=== PATIENT | female | born 1970 | race Caucasian/White ===

== ENCOUNTER 2017-07-06 11:05 | Emergency (ER) | payer OTHER ==
[~2017-07-06] VITALS: Ht 154.9 cm; Wt 80.0 kg
[2017-07-06 11:09] VITALS: BP 142/67; PULSE 63; RESP 16; TEMP 98.2; O2SAT 98
[2017-07-06 12:23] VITALS: O2SAT 96
--- NOTE | 2017-07-06 12:25 | PD ---
HPI Chief Complaint: Syncope/Near-Syncope Time Seen by Provider: 12:12 Travel History International Travel<30 days: No Contact w/Intl Traveler<30days: No Traveled to known affect area: No History of Present Illness HPI The patient was seen and examined in the presence of the nurse. This patient has been having 3 days of atypical symptoms. Severity of them is moderate. She has brief spells where she gets a room spinning dizziness. They last about 2 minutes and resolved spontaneously. No alleviating factors. No syncope. She has had a headache today. No thunderclap onset or severe headache though. She is not having speech slurring or confusion or fever or recent head injury. Denies some mild numbness in a strip that runs down the inside of each arm to about the level of the wrist but does not include the fingers. No leg symptoms. No neck pain. PFSH Past Medical History ?: Not Social History Alcohol Use: No Tobacco Use: No Substance Use: No Allergies-Medications (Allergen,Severity, Reaction): Coded Allergies: No Known Allergies (Verified Allergy, Unknown, 07/06/17) Reported Meds & Prescriptions Reported Meds & Active Scripts Active No Active Prescriptions or Reported Medications Review of Systems General / Constitutional: No: Fever Eyes: No: Visual changes HENT: Positive: Headaches, Vertigo Cardiovascular: No: Chest Pain or Discomfort Respiratory: No: Shortness of Breath Gastrointestinal: No: Abdominal Pain Genitourinary: No: Dysuria Musculoskeletal: No: Pain Skin: No Rash Neurologic: Positive: Dizziness, Sensory Disturbance, No: Weakness Psychiatric: No: Depression Endocrine: No: Polydipsia Hematologic/Lymphatic: No: Easy Bruising Physical Exam Narrative GENERAL: Well-nourished, well-developed patient in no apparent distress. SKIN: Focused skin assessment reveals no rash and nodules. Skin is Warm and dry. HEAD: Atraumatic. Normocephalic. EYES: Pupils equal and round. No scleral icterus. No injection or drainage. ENT: No nasal bleeding or discharge. Mucous membranes pink and moist. NECK: Trachea midline. No JVD. No midline tenderness. No meningeal signs CARDIOVASCULAR: Regular rate and rhythm. No murmur appreciated. RESPIRATORY: No accessory muscle use. Clear to auscultation. Breath sounds equal bilaterally. GASTROINTESTINAL: Abdomen soft, non-tender, nondistended. Hepatic and splenic margins not palpable. MUSCULOSKELETAL: No obvious deformities. No clubbing. No cyanosis. No edema. NEUROLOGICAL: Awake and alert. No obvious cranial nerve deficits. Motor grossly within normal limits. Normal speech. Sensory exam reveals some subjective diminishment only in a discrete strip down the inside of each arm. This includes sharp and light touch. There is not a complete sensory loss. PSYCHIATRIC: Appropriate mood and affect; insight and judgment normal. Data Data Last Documented VS Vital Signs Date Time Temp Pulse Resp B/P (MAP) Pulse Ox O2 Delivery O2 Flow Rate FiO2 07/06/17 12:23 96 07/06/17 11:09 98.2 63 16 142/67 (92) Orders Orders Electrocardiogram (07/06/17 12:17) Basic Metabolic Panel (Bmp) (07/06/17 12:17) Complete Blood Count With Diff (07/06/17 12:17) Ct Brain W/O Iv Contrast(Rout) (07/06/17 12:17) Ecg Monitoring (07/06/17 12:17) Iv Access Insert/Monitor (07/06/17 12:17) Oximetry (07/06/17 12:17) Sodium Chloride 0.9% Flush (Ns Flush) (07/06/17 12:30) Labs Laboratory Tests Test 07/06/17 12:20 White Blood Count 13.8 TH/MM3 Red Blood Count 4.92 MIL/MM3 Hemoglobin 14.6 GM/DL Hematocrit 43.3 % Mean Corpuscular Volume 88.1 FL Mean Corpuscular Hemoglobin 29.8 PG Mean Corpuscular Hemoglobin Concent 33.8 % Red Cell Distribution Width 12.6 % Platelet Count 195 TH/MM3 Mean Platelet Volume 8.9 FL Neutrophils (%) (Auto) 75.9 % Lymphocytes (%) (Auto) 17.3 % Monocytes (%) (Auto) 3.7 % Eosinophils (%) (Auto) 1.1 % Basophils (%) (Auto) 2.0 % Neutrophils # (Auto) 10.4 TH/MM3 Lymphocytes # (Auto) 2.4 TH/MM3 Monocytes # (Auto) 0.5 TH/MM3 Eosinophils # (Auto) 0.2 TH/MM3 Basophils # (Auto) 0.3 TH/MM3 CBC Comment DIFF FINAL Differential Comment Blood Urea Nitrogen 10 MG/DL Creatinine 0.69 MG/DL Random Glucose 108 MG/DL Calcium Level 9.1 MG/DL Sodium Level 138 MEQ/L Potassium Level 4.1 MEQ/L Chloride Level 107 MEQ/L Carbon Dioxide Level 21.4 MEQ/L Anion Gap 10 MEQ/L Estimat Glomerular Filtration Rate 92 ML/MIN MDM Medical Decision Making Medical Screen Exam Complete: Yes Emergency Medical Condition: Yes Medical Record Reviewed: Yes Differential Diagnosis Positional vertigo, labyrinthitis, TIA, CVA, radiculopathy Narrative Course I have reviewed the patient's electronic medical record. IV placed CBC is normal Metabolic profile is normal I reviewed her EKG which shows sinus rhythm without ectopy Extended cardiac monitoring shows sinus rhythm without ectopy Brain CT is normal No objective neurologic deficit on exam. She has some subjective peripheral neuropathy-type complaints. Not consistent with CVA. Symptoms are bilateral. Patient she had outpatient primary care or neurology follow-up Diagnosis Primary Impression: Vertigo Additional Impressions: Headache Qualified Codes: R51 - Headache Peripheral neuropathy Qualified Codes: G62.9 - Polyneuropathy, unspecified Additional Instructions: The patient was advised to follow up with their physician and return if they worsen. Med/Other Pt SpecificInfo: Other Scripts No Active Prescriptions or Reported Meds Disposition: DISCHARGE HOME Condition: Stable Otilio Woody MD Jul 06, 2017 12:25
[2017-07-06] MEDS ORDERED: SODIUM CHLORIDE 0.9% FLUSH 10 ML FLUSH IVF PRN (12:30)
[2017-07-06 12:31] LABS: AUTOMATED NEUTROPHIL # 10.4 TH/MM3 (1.8-7.7); BASOPHIL # 0.3 TH/MM3 (0-0.2); EOSINOPHIL # 0.2 TH/MM3 (0-0.4); EOSINOPHIL % 1.1 % (0.0-4.0); HEMATOCRIT 43.3 % (35.0-46.0); HEMO FLAGS DIFF FINAL; LYMPH % 17.3 % (9.0-44.0); LYMPHOCYTE # 2.4 TH/MM3 (1.0-4.8); MEAN CELL VOLUME 88.1 FL (80.0-100.0); MEAN CORPUSCULAR HEMOGLOBIN 29.8 PG (27.0-34.0); MEAN CORPUSCULAR HGB CONC 33.8 % (32.0-36.0); MONO % 3.7 % (0.0-8.0); NEUT % 75.9 % (16.0-70.0); PLATELET COUNT 195 TH/MM3 (150-450); RED BLOOD COUNT 4.92 MIL/MM3 (4.00-5.30); RED CELL DISTRIBUTION WIDTH 12.6 % (11.6-17.2); WHITE BLOOD COUNT 13.8 TH/MM3 (4.0-11.0)
[2017-07-06 12:38] LABS: POTASSIUM 4.1 MEQ/L (3.5-5.1)
[2017-07-06 12:41] LABS: BICARBONATE 21.4 MEQ/L (21.0-32.0)
--- NOTE | 2017-07-06 12:47 | RADRPT ---
EXAM DATE/TIME: 07/06/2017 12:35 [facility] COMPARISON: No previous studies available for comparison. INDICATIONS : Headache and visual disturbance. RADIATION DOSE: 61.51 CTDIvol (mGy) MEDICAL HISTORY : None SURGICAL HISTORY : None. ENCOUNTER: Initial ACUITY: 4 - 6 days PAIN SCALE: 4/10 LOCATION: cranial TECHNIQUE: Multiple contiguous axial images were obtained of the head. Using automated exposure control and adj ustment of the mA and/or kV according to patient size, radiation dose was kept as low as reasonably a chievable to obtain optimal diagnostic quality images. DICOM format image data is available electro nically for review and comparison. FINDINGS: CEREBRUM: The ventricles are normal for age. No evidence of midline shift, mass lesion, hemorrhage or acute in farction. No extra-axial fluid collections are seen. POSTERIOR FOSSA: The cerebellum and brainstem are intact. The 4th ventricle is midline. The cerebellopontine angle i s unremarkable. EXTRACRANIAL: The visualized portion of the orbits is intact. SKULL: The calvaria is intact. No evidence of skull fracture. CONCLUSION: 1. No acute intracranial abnormality. Billy Faith MD on July 06, 2017 at 12:44 Board Certified Radiologist. This report was verified electronically.
--- NOTE | 2017-07-07 13:32 | EKG ---
Date Performed: 07/06/2017 Time Performed: 12:27:22 PTAGE: 46 years EKG: Sinus rhythm WITH SINUS ARRHYTHMIA NORMAL ECG NO PREVIOUS TRACING DOCTOR: Anny Cifuentes Interpretating Date/Time 07/07/2017 13:31:14
== END 2017-07-06 14:22 | disposition home or self-care (01) ==
LOC: PHED 11:05 → PHEFT 14:22
DX: R42 Dizziness and giddiness (principal); R51 Headache; G62.9 Polyneuropathy, unspecified
CPT/HCPCS: 70450; 80048; 85025; 93005; 99285